=== PATIENT | female | born 2000 | race Caucasian/White ===

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

== ENCOUNTER 2019-10-15 10:35 | Emergency (ER) | payer OTHER ==
[2019-10-15 10:42] VITALS: RESP 18
[2019-10-15] MEDS ORDERED: SODIUM CHLORIDE 0.9% 500 ML 500 ML IV ONE (10:44)
[2019-10-15 11:16] LABS: Basophils % (A) 0 %; Eosinophils # (A) 0.1 k/uL (0-0.7); Eosinophils % (A) 1 %; HCT 40.6 % (34.0-46.0); HGB 13.8 gm/dL (11.4-16.0); Lymphocytes # (A) 1.1 k/uL (1.0-4.8); Lymphocytes % (A) 16 %; MCH 31.3 pg (25.0-35.0); MCHC 34.1 g/dL (31.0-37.0); Monocytes # (A) 0.3 k/uL (0-1.0); Monocytes % (A) 5 %; Neutrophils # (A) 5.6 k/uL (1.3-7.7); Neutrophils % (A) 78 %; Platelet Count 180 k/uL (150-450); RBC 4.41 m/uL (3.80-5.40); RDW 12.6 % (11.5-15.5); WBC 7.1 k/uL (4.0-11.0)
[2019-10-15] MEDS ORDERED: ONDANSETRON 4 MG/2 ML VIAL IVP STA (11:17)
[2019-10-15 11:25] LABS: Amorphous Sediment,Urine Rare /hpf; Appearance,Urine Cloudy (Clear); Bilirubin,Urine Negative (Negative); Blood,Urine Negative (Negative); Color,Urine Yellow; Glucose,Urine (UA) Negative (Negative); Ketones,Urine 4+ (Negative); Leukocyte Esterase,Urine Negative (Negative); Mucus,Urine Moderate /hpf; Nitrite,Urine Negative (Negative); PH, Urine 7.5 (5.0-8.0); Protein,Urine Trace (Negative); RBC,Urine 1 /hpf (0-5); Specific Gravity,Urine 1.023 (1.001-1.035); Squamous Epithelial Cell,Urine 2 /hpf (0-4); WBC,Urine 2 /hpf (0-5)
[2019-10-15 11:25] LABS: ALT 11 U/L (4-34); AST 21 U/L (14-36); African American GFR (CKD) >90 (>60 ml/min/1.73 sqM); Albumin 4.3 g/dL (3.5-5.0); Alkaline Phosphatase 56 U/L (38-126); Anion Gap 9 mmol/L; Blood Urea Nitrogen 4 mg/dL (7-17); Calcium 9.3 mg/dL (8.4-10.2); Carbon Dioxide 21 mmol/L (22-30); Chloride 106 mmol/L (98-107); Glucose 95 mg/dL (74-99); Non-African American GFR(CKD) >90 (>60 ml/min/1.73 sqM); Potassium 3.9 mmol/L (3.5-5.1); Sodium 136 mmol/L (137-145); Total Bilirubin 0.6 mg/dL (0.2-1.3); Total Protein 7.2 g/dL (6.3-8.2)
--- NOTE | 2019-10-15 11:30 | ED ---
Abdominal Pain HPI - General Chief Complaint: Abdominal Pain Stated Complaint: Abd pain/vomiting Time Seen by Provider: 10/15/19 10:44 Source: patient Mode of arrival: ambulatory Limitations: no limitations - History of Present Illness Initial Comments: 18-year-old female presenting today for chief complaint of lower abdominal pain and vomiting x 1 day. Patient states the past day she has had vomiting. She states she also has lower abdominal pressure. Patient states she is concerned of . Patient denies discharge or vaginal bleeding denies fevers but states she has had some loose stools. Denies blood in stools or vomit. Denies headache, neck stiffness. Patient denies specific right or left lower pain just states mostly midline/diffuse of lower abdomen. Denies radiation, Denies experiencing this before. Patient has no additional complaints. Upon arrival patient appears well no distress, but smells of vomit. - Related Data Home Medications Medication Instructions Recorded Confirmed Acetaminophen [Tylenol] 500 mg PO DAILY PRN 06/24/17 07/02/17 Allergies Allergy/AdvReac Type Severity Reaction Status Date / Time No Known Allergies Allergy Verified 10/15/19 10:43 Review of Systems ROS Statement: Those systems with pertinent positive or pertinent negative responses have been documented in the HPI. ROS Other: All systems not noted in ROS Statement are negative. Past Medical History Past Medical History: No Reported History Additional Past Medical History / Comment(s): DIGESTIVE PROBLEMS. History of Any Multi-Drug Resistant Organisms: None Reported Past Surgical History: No Surgical Hx Reported Additional Past Surgical History / Comment(s): FACIAL RECONSTRUCTION D/T DOG ATTACK. Past Anesthesia/Blood Transfusion Reactions: No Reported Reaction Past Psychological History: Depression Smoking Status: Current every day smoker Past Alcohol Use History: None Reported Past Drug Use History: Marijuana - Past Family History Mother Family Medical History: No Reported History Father Family Medical History: Unable to Obtain General Exam - General Exam Comments Initial Comments: General: The patient is awake and alert, in no distress Eye: Pupils are equal, round and reactive to light, extra-ocular movements are intact. No nystagmus. There is normal conjunctiva bilaterally. No signs of icterus. Cardiovascular: There is a regular rate and rhythm. No murmur, rub or gallop is appreciated. Respiratory: Lungs are clear to auscultation, respirations are non-labored, breath sounds are equal. No wheezes, stridor, rales, or rhonchi. Gastrointestinal: [Soft, non-distended, tender to palpable of lower pelvic region, mostly midline but is present on both sides equally. Remaining abdomen (upper) nontender and without masses or organomegaly noted. There is no rebound or guarding present. Musculoskeletal: Normal ROM, no tenderness. Strength 5/5. Sensation intact. Radial pulses equal bilaterally 2+. Neurological: A&O x 3. CN II-XII intact grossly, There are no obvious motor or sensory deficits. Coordination appears grossly intact. Speech is normal. Skin: Skin is warm and dry and no rashes or lesions are noted. Psychiatric: Cooperative, appropriate mood & affect, normal judgment. Limitations: no limitations Course Vital Signs 10/15/19 10/15/19 10:40 12:40 Temperature 98.3 F 98.0 F Pulse Rate 82 78 Respiratory 18 18 Rate Blood Pressure 107/71 100/61 O2 Sat by Pulse 96 98 Oximetry Medical Decision Making - Medical Decision Making 18yo lower pelvic pressure. HCG + urine, HCG quant ~54,000 correlates with US of 6 weeks 1 day. Patient denies vaginal bleeding or discharge, no noted bacteria in urine. Patient has no fevers. +4 ketones in urine suspected starvation> patient given zofran. tolerating oral intake. given IVF. Patient requesting discharge. Patient discharged with OBGYN f/u. recommended going over psychiatric medications today with her physician. Patient agreeable to care plan and discharge at this time-- as well as attending provider Dr. Phillips. - Lab Data Result diagrams: 10/15/19 11:03 10/15/19 11:03 Lab Results 10/15/19 10/15/19 10/15/19 Range/Units 11:00 11:00 11:03 WBC 7.1 (4.0-11.0) k/uL RBC 4.41 (3.80-5.40) m/uL Hgb 13.8 (11.4-16.0) gm/dL Hct 40.6 (34.0-46.0) % MCV 92.0 (80.0-100.0) fL MCH 31.3 (25.0-35.0) pg MCHC 34.1 (31.0-37.0) g/dL RDW 12.6 (11.5-15.5) % Plt Count 180 (150-450) k/uL Neutrophils % 78 % Lymphocytes % 16 % Monocytes % 5 % Eosinophils % 1 % Basophils % 0 % Neutrophils # 5.6 (1.3-7.7) k/uL Lymphocytes # 1.1 (1.0-4.8) k/uL Monocytes # 0.3 (0-1.0) k/uL Eosinophils # 0.1 (0-0.7) k/uL Basophils # 0.0 (0-0.2) k/uL Sodium (137-145) mmol/L Potassium (3.5-5.1) mmol/L Chloride (98-107) mmol/L Carbon Dioxide (22-30) mmol/L Anion Gap mmol/L BUN (7-17) mg/dL Creatinine (0.52-1.04) mg/dL Est GFR (CKD-EPI)AfAm (>60 ml/min/1.73 sqM) Est GFR (CKD-EPI)NonAf (>60 ml/min/1.73 sqM) Glucose (74-99) mg/dL Calcium (8.4-10.2) mg/dL Total Bilirubin (0.2-1.3) mg/dL AST (14-36) U/L ALT (4-34) U/L Alkaline Phosphatase (38-126) U/L Total Protein (6.3-8.2) g/dL Albumin (3.5-5.0) g/dL HCG, Quant mIU/mL Urine Color Yellow Urine Appearance Cloudy H (Clear) Urine pH 7.5 (5.0-8.0) Ur Specific [place] 1.023 (1.001-1.035) Urine Protein Trace H (Negative) Urine Glucose (UA) Negative (Negative) Urine Ketones 4+ H (Negative) Urine Blood Negative (Negative) Urine Nitrite Negative (Negative) Urine Bilirubin Negative (Negative) Urine Urobilinogen 2.0 (<2.0) mg/dL Ur Leukocyte Esterase Negative (Negative) Urine RBC 1 (0-5) /hpf Urine WBC 2 (0-5) /hpf Ur Squamous Epith Cells 2 (0-4) /hpf Amorphous Sediment Rare H (None) /hpf Urine Mucus Moderate H (None) /hpf Urine HCG, Qual Detected (Not Detectd) Blood Type Blood Type Recheck Bld Type Recheck Status 10/15/19 10/15/19 10/15/19 Range/Units 11:03 11:03 11:03 WBC (4.0-11.0) k/uL RBC (3.80-5.40) m/uL Hgb (11.4-16.0) gm/dL Hct (34.0-46.0) % MCV (80.0-100.0) fL MCH (25.0-35.0) pg MCHC (31.0-37.0) g/dL RDW (11.5-15.5) % Plt Count (150-450) k/uL Neutrophils % % Lymphocytes % % Monocytes % % Eosinophils % % Basophils % % Neutrophils # (1.3-7.7) k/uL Lymphocytes # (1.0-4.8) k/uL Monocytes # (0-1.0) k/uL Eosinophils # (0-0.7) k/uL Basophils # (0-0.2) k/uL Sodium 136 L (137-145) mmol/L Potassium 3.9 (3.5-5.1) mmol/L Chloride 106 (98-107) mmol/L Carbon Dioxide 21 L (22-30) mmol/L Anion Gap 9 mmol/L BUN 4 L (7-17) mg/dL Creatinine 0.52 (0.52-1.04) mg/dL Est GFR (CKD-EPI)AfAm >90 (>60 ml/min/1.73 sqM) Est GFR (CKD-EPI)NonAf >90 (>60 ml/min/1.73 sqM) Glucose 95 (74-99) mg/dL Calcium 9.3 (8.4-10.2) mg/dL Total Bilirubin 0.6 (0.2-1.3) mg/dL AST 21 (14-36) U/L ALT 11 (4-34) U/L Alkaline Phosphatase 56 (38-126) U/L Total Protein 7.2 (6.3-8.2) g/dL Albumin 4.3 (3.5-5.0) g/dL HCG, Quant 20876.2 mIU/mL Urine Color Urine Appearance (Clear) Urine pH (5.0-8.0) Ur Specific [place] (1.001-1.035) Urine Protein (Negative) Urine Glucose (UA) (Negative) Urine Ketones (Negative) Urine Blood (Negative) Urine Nitrite (Negative) Urine Bilirubin (Negative) Urine Urobilinogen (<2.0) mg/dL Ur Leukocyte Esterase (Negative) Urine RBC (0-5) /hpf Urine WBC (0-5) /hpf Ur Squamous Epith Cells (0-4) /hpf Amorphous Sediment (None) /hpf Urine Mucus (None) /hpf Urine HCG, Qual (Not Detectd) Blood Type O Positive Blood Type Recheck No Previous Record Bld Type Recheck Status [facility] ONLY Disposition Clinical Impression: Vomiting during , Dehydration, Lower abdominal pain, Intrauterine Disposition: HOME SELF-CARE Condition: Stable Instructions (If sedation given, give patient instructions): Abdominal Pain in (ED) Additional Instructions: Please use medication as discussed. Please follow-up with family doctor in the next 2 days, recommend finding OB care and following up in the next 1-2 days. Please consult psychiatry in regards to discontinuing medications that are unsafe in -call today. Please return to emergency room if the symptoms increase or worsen or for any other concerns. Is patient prescribed a controlled substance at d/c from ED?: No Referrals: Rigo Olivas MD [Primary Care Provider] - 1-2 days Houston Aleman MD [STAFF PHYSICIAN] - 1-2 days Linh Kirby DO [Doctor of Osteopathic Medicine] - 1-2 days Time of Disposition: 12:28
[2019-10-15] MEDS ORDERED: SODIUM CHLORIDE 0.9% 1,000 ML IV ONE (12:01)
--- NOTE | 2019-10-15 12:25 | US ---
EXAMINATION TYPE: Transabdominal DATE OF EXAM: 10/15/2019 12:11 PM COMPARISON: NONE CLINICAL HISTORY: and pain. Vomiting. EXAM PERFORMED: Transabdominal (TA) EXAM MEASUREMENTS: GESTATIONAL AGE / DATING Physician Established: Not yet established Dates by LMP: LMP unknown Dates by First Scan: No previous this is first scan Dates by Current Scan for: (6 weeks/1 days) EDC: 06/08/2020 MATERNAL ANATOMY Uterus: 8.9 x 5.6 x 6.9 cm Right Ovary: 2.6 x 2.4 x 2.3 cm Left Ovary: Obscured by bowel gas. Post CDS / Adnexa: wnl Presence of free fluid: no Presence of corpus luteal cyst: no Presence of subchorionic bleed: no GESTATION / SURVEY CRL: 0.49 cm (6 weeks/1 days) Yolk Sac (normal less than 6mm): 2 mm Heart Rate: 154 bpm Rhythm: Normal IUP: Viable IUP Beta HcG (if available): Not available at this time Single live intrauterine gestation is confirmed as gestational sac, yolk sac, and pole are seen . No free fluid in pelvic cul-de-sac. Right ovary seen. Left ovary not identified. No suspicious extraovarian adnexal mass seen. IMPRESSION: Single live intrauterine gestation is confirmed. Mean crown-rump length 0.5 cm correspond ing to 6 week 1 day old fetus.
[2019-10-15 12:41] VITALS: BP 100/61; PULSE 78; TEMP 98
== END 2019-10-15 12:40 | disposition home or self-care (01) ==
LOC: EC 10:35
DX: O21.9 Vomiting of pregnancy, unspecified (principal); O26.891 Other specified pregnancy related conditions, first trimester; R10.30 Lower abdominal pain, unspecified; O99.281 Endocrine, nutritional and metabolic diseases complicating pregnancy, first trimester; E86.0 Dehydration; O99.331 Smoking (tobacco) complicating pregnancy, first trimester; F17.200 Nicotine dependence, unspecified, uncomplicated; Z3A.01 Less than 8 weeks gestation of pregnancy
CPT/HCPCS: 36415; 86900; 86901; 80053; 85025; 81001; 81025; 84702; 76801; 99284; 96374; J2405

== ENCOUNTER 2019-11-27 15:30 | Emergency (ER) | payer OTHER ==
[2019-11-27 15:46] VITALS: RESP 18; TEMP 98.7
--- NOTE | 2019-11-27 16:26 | ED ---
General Adult HPI - General Chief complaint: Psychiatric Symptoms Stated complaint: Petition Time Seen by Provider: 11/27/19 15:48 Source: patient, RN notes reviewed Mode of arrival: ambulatory Limitations: no limitations - History of Present Illness Initial comments: 19-year-old female with a past medical history of depression presents to the emergency department for EPS evaluation. Patient states she was petitioned by her mother for "threatening her." Patient states a little over a month ago her mother left her dad and went to [place] where she met her new boyfriend and brought her back to their house. She kicked her father out apparently. Patient states this made her very upset. States she then found out just before her 19st birthday that she was and decided to have an . Patient reports that she told her mother 2 weeks ago that she was leaning on her for help in that her mother was letting her down. She states that yesterday she became very upset about this and texted her mother "RIP to the mother I used to know." States she is not threatening her when she said this that was stating that their relationship is over. Apparently mother went to court and got a petition for patient to be evaluated for threatening her. Patient denies any thoughts of harming herself or anyone else. Denies suicidal thoughts. Patient has no other complaints at this time including shortness of breath, chest pain, abdominal pain, nausea or vomiting, headache, or visual changes. - Related Data Home Medications Medication Instructions Recorded Confirmed Acetaminophen [Tylenol] 500 mg PO DAILY PRN 06/24/17 07/02/17 Allergies Allergy/AdvReac Type Severity Reaction Status Date / Time No Known Allergies Allergy Verified 11/27/19 15:46 Review of Systems ROS Statement: Those systems with pertinent positive or pertinent negative responses have been documented in the HPI. ROS Other: All systems not noted in ROS Statement are negative. Past Medical History Past Medical History: No Reported History Additional Past Medical History / Comment(s): DIGESTIVE PROBLEMS. History of Any Multi-Drug Resistant Organisms: None Reported Past Surgical History: No Surgical Hx Reported Additional Past Surgical History / Comment(s): FACIAL RECONSTRUCTION D/T DOG ATTACK. Past Anesthesia/Blood Transfusion Reactions: No Reported Reaction Past Psychological History: Depression Smoking Status: Current every day smoker Past Alcohol Use History: None Reported Past Drug Use History: Marijuana - Past Family History Mother Family Medical History: No Reported History Father Family Medical History: Unable to Obtain General Exam Limitations: no limitations General appearance: alert, in no apparent distress Head exam: Present: atraumatic, normocephalic, normal inspection Eye exam: Present: normal appearance, PERRL, EOMI. Absent: scleral icterus, conjunctival injection, periorbital swelling ENT exam: Present: normal exam, mucous membranes moist Neck exam: Present: normal inspection, full ROM. Absent: tenderness, meningismus, lymphadenopathy Respiratory exam: Present: normal lung sounds bilaterally. Absent: respiratory distress, wheezes, rales, rhonchi, stridor Cardiovascular Exam: Present: regular rate, normal rhythm, normal heart sounds. Absent: systolic murmur, diastolic murmur, rubs, gallop, clicks GI/Abdominal exam: Present: soft, normal bowel sounds. Absent: distended, tenderness, guarding, rebound, rigid Neurological exam: Present: alert Psychiatric exam: Absent: homicidal ideation, suicidal ideation Course Vital Signs 11/27/19 15:41 Temperature 98.7 F Pulse Rate 83 Respiratory 18 Rate Blood Pressure 90/53 O2 Sat by Pulse 99 Oximetry Medical Decision Making - Medical Decision Making Patient adamantly denies any suicidal or homicidal thoughts. Patient was evaluated by EPS and psychiatrist is recommending discharge home with follow-up. Patient will return here for any worsening symptoms. She is agreeable to this. Significant other will pick her up. - Lab Data Lab Results 11/27/19 Range/Units 16:23 Urine Opiates Screen Not Detected (NotDetected) Ur Oxycodone Screen Not Detected (NotDetected) Urine Methadone Screen Not Detected (NotDetected) Ur Propoxyphene Screen Not Detected (NotDetected) Ur Barbiturates Screen Not Detected (NotDetected) U Tricyclic Antidepress Not Detected (NotDetected) Ur Phencyclidine Scrn Not Detected (NotDetected) Ur Amphetamines Screen Not Detected (NotDetected) U Methamphetamines Scrn Not Detected (NotDetected) U Benzodiazepines Scrn Not Detected (NotDetected) Urine Cocaine Screen Not Detected (NotDetected) U Marijuana (THC) Screen Detected H (NotDetected) Disposition Clinical Impression: Adjustment reaction Disposition: HOME SELF-CARE Condition: Good Instructions (If sedation given, give patient instructions): Depression (ED) Additional Instructions: Please follow up with referrals given. Please return here for any worsening symptoms. Is patient prescribed a controlled substance at d/c from ED?: No Referrals: Rigo Olivas MD [Primary Care Provider] - 1-2 days Time of Disposition: 18:47
[2019-11-27 16:58] LABS: Amphetamine Screen,Urine Not Detected (NotDetected); Barbiturate Screen,Urine Not Detected (NotDetected); Benzodiazepines Screen,Urine Not Detected (NotDetected); Cocaine Screen,Urine Not Detected (NotDetected); Methadone Screen, Urine Not Detected (NotDetected); Opiate Screen,Urine Not Detected (NotDetected); Oxycodone Screen, Urine Not Detected (NotDetected); Phencyclidine Screen,Urine Not Detected (NotDetected); Tricyclic Antidepressant,Urine Not Detected (NotDetected); Urn Cannabinoid Scrn Detected (NotDetected)
[2019-11-27 21:37] VITALS: BP 110/55; PULSE 88
== END 2019-11-27 19:07 | disposition home or self-care (01) ==
LOC: EC 15:30
DX: F43.20 Adjustment disorder, unspecified (principal); F17.200 Nicotine dependence, unspecified, uncomplicated
CPT/HCPCS: 80306; 82075; 99284

== ENCOUNTER 2020-04-23 20:08 | Emergency (ER) | payer OTHER ==
[2020-04-23] MEDS ORDERED: SODIUM CHLORIDE 0.9% 2,000 ML IV STA (20:26)
[2020-04-23] MEDS ORDERED: diphenhydrAMINE 50 MG/ML 1 ML VIAL IVP STA (20:26)
[2020-04-23] MEDS ORDERED: SODIUM CHLORIDE 0.9% 1,000 ML IV STA (20:26)
[2020-04-23] MEDS ORDERED: METOCLOPRAMIDE 5 MG/ML 2 ML VIAL IVP STA (20:26)
--- NOTE | 2020-04-23 20:30 | ED ---
General Adult HPI - General Chief complaint: Nausea/Vomiting/Diarrhea Stated complaint: Nausea/Vomiting Time Seen by Provider: 04/23/20 20:15 Source: patient, RN notes reviewed, old records reviewed Limitations: no limitations - History of Present Illness Initial comments: This Patient is a 19-year-old female presents emergency Department stay of complains of nausea and lower abdominal pain today. She's had multiple episodes of vomiting. She states that she could possibly be as her last menstrual period was a month and a half ago. She's not taken test at home. Patient states last time she was she had symptoms such as this with nausea and vomiting. She also reports that she is to start new antibiotic for a dental infection today. Has lower abdominal cramping. Denies leg diarrhea or dysuria. Denies vaginal discharge or bleeding. - Related Data Home Medications Medication Instructions Recorded Confirmed Citalopram Hydrobromide [CeleXA] 20 mg PO HS 04/23/20 04/23/20 QUEtiapine [SEROquel] 50 mg PO HS 04/23/20 04/23/20 Previous Rx's Medication Instructions Recorded Amoxicillin 500 mg PO TID #30 capsule 04/23/20 Metoclopramide [Reglan] 5 mg PO ACHS #12 tab 04/23/20 Allergies Allergy/AdvReac Type Severity Reaction Status Date / Time No Known Allergies Allergy Verified 04/23/20 21:26 Review of Systems ROS Statement: Those systems with pertinent positive or pertinent negative responses have been documented in the HPI. ROS Other: All systems not noted in ROS Statement are negative. Past Medical History Past Medical History: No Reported History Additional Past Medical History / Comment(s): DIGESTIVE PROBLEMS. History of Any Multi-Drug Resistant Organisms: None Reported Past Surgical History: No Surgical Hx Reported Additional Past Surgical History / Comment(s): FACIAL RECONSTRUCTION D/T DOG ATTACK. Past Anesthesia/Blood Transfusion Reactions: No Reported Reaction Past Psychological History: Depression Past Alcohol Use History: None Reported Past Drug Use History: Marijuana - Past Family History Mother Family Medical History: No Reported History Father Family Medical History: Unable to Obtain General Exam - General Exam Comments Initial Comments: Alert and oriented 19-year-old female. No distress. Limitations: no limitations General appearance: alert, in no apparent distress Head exam: Present: atraumatic, normocephalic, normal inspection Eye exam: Present: normal appearance, PERRL, EOMI. Absent: scleral icterus, conjunctival injection, periorbital swelling ENT exam: Present: normal exam, mucous membranes moist, other (Patient is poor dentition. Multiple dental caries and broken teeth.) Neck exam: Present: normal inspection. Absent: tenderness, meningismus, lymphadenopathy Respiratory exam: Present: normal lung sounds bilaterally. Absent: respiratory distress, wheezes, rales, rhonchi, stridor Cardiovascular Exam: Present: regular rate, normal rhythm, normal heart sounds. Absent: systolic murmur, diastolic murmur, rubs, gallop, clicks GI/Abdominal exam: Present: soft, normal bowel sounds. Absent: distended, tenderness, guarding, rebound, rigid Extremities exam: Present: normal inspection, full ROM, normal capillary refill. Absent: tenderness, pedal edema, joint swelling, calf tenderness Back exam: Present: normal inspection Neurological exam: Present: alert, oriented X3, CN II-XII intact Psychiatric exam: Present: normal affect, normal mood Skin exam: Present: warm, dry, intact, normal color. Absent: rash Course Vital Signs 04/23/20 04/23/20 20:09 22:50 Temperature 98.9 F 98.4 F Pulse Rate 111 H 92 Respiratory 18 15 Rate Blood Pressure 101/71 84/42 O2 Sat by Pulse 97 100 Oximetry Medical Decision Making - Medical Decision Making 19-year-old female presents to the ER today for evaluation with complaints of nausea and vomiting. Concern for . She doesn't has a test serum hCG is 30,000. She is Rh+. This we patient's second . Patient has no vaginal bleeding or discharge. Labwork was reviewed and otherwise unremarkable. Ultrasound today shows gestational sac with no heart rate. Possible demise. Patient was informed these results. Discussed she may start having vaginal bleeding concerning concern for miscarriage. I discussed she needs follow-up with an [facility] CONSULTANT. Patient will be started on antibiotic for her known dental infection. - Lab Data Result diagrams: 04/23/20 20:35 04/23/20 20:35 Lab Results 04/23/20 04/23/20 04/23/20 Range/Units 20:35 20:35 20:35 WBC 6.7 (3.8-10.6) k/uL RBC 4.23 (3.80-5.40) m/uL Hgb 13.0 (11.4-16.0) gm/dL Hct 37.8 (34.0-46.0) % MCV 89.3 (80.0-100.0) fL MCH 30.7 (25.0-35.0) pg MCHC 34.4 (31.0-37.0) g/dL RDW 13.6 (11.5-15.5) % Plt Count 169 (150-450) k/uL MPV 7.4 Neutrophils % 67 % Lymphocytes % 23 % Monocytes % 6 % Eosinophils % 1 % Basophils % 0 % Neutrophils # 4.5 (1.3-7.7) k/uL Lymphocytes # 1.6 (1.0-4.8) k/uL Monocytes # 0.4 (0-1.0) k/uL Eosinophils # 0.0 (0-0.7) k/uL Basophils # 0.0 (0-0.2) k/uL Sodium 135 L (137-145) mmol/L Potassium 3.5 (3.5-5.1) mmol/L Chloride 106 (98-107) mmol/L Carbon Dioxide 23 (22-30) mmol/L Anion Gap 6 mmol/L BUN 6 L (7-17) mg/dL Creatinine 0.60 (0.52-1.04) mg/dL Est GFR (CKD-EPI)AfAm >90 (>60 ml/min/1.73 sqM) Est GFR (CKD-EPI)NonAf >90 (>60 ml/min/1.73 sqM) Glucose 90 (74-99) mg/dL Calcium 9.1 (8.4-10.2) mg/dL Total Bilirubin 1.0 (0.2-1.3) mg/dL AST 19 (14-36) U/L ALT 11 (4-34) U/L Alkaline Phosphatase 49 (38-126) U/L Total Protein 6.9 (6.3-8.2) g/dL Albumin 4.1 (3.5-5.0) g/dL Lipase 60 (23-300) U/L HCG, Quant 29020.3 mIU/mL Urine Color Yellow Urine Appearance Cloudy H (Clear) Urine pH 7.0 (5.0-8.0) Ur Specific [place] 1.028 (1.001-1.035) Urine Protein 1+ H (Negative) Urine Glucose (UA) Negative (Negative) Urine Ketones 3+ H (Negative) Urine Blood Negative (Negative) Urine Nitrite Negative (Negative) Urine Bilirubin Negative (Negative) Urine Urobilinogen <2.0 (<2.0) mg/dL Ur Leukocyte Esterase Negative (Negative) Urine RBC 2 (0-5) /hpf Urine WBC 3 (0-5) /hpf Ur Squamous Epith Cells 10 H (0-4) /hpf Amorphous Sediment Occasional H (None) /hpf Hyaline Casts 1 (0-2) /lpf Urine Mucus Many H (None) /hpf Urine HCG, Qual (Not Detectd) Blood Type Blood Type Recheck Bld Type Recheck Status 04/23/20 04/23/20 Range/Units 20:35 20:40 WBC (3.8-10.6) k/uL RBC (3.80-5.40) m/uL Hgb (11.4-16.0) gm/dL Hct (34.0-46.0) % MCV (80.0-100.0) fL MCH (25.0-35.0) pg MCHC (31.0-37.0) g/dL RDW (11.5-15.5) % Plt Count (150-450) k/uL MPV Neutrophils % % Lymphocytes % % Monocytes % % Eosinophils % % Basophils % % Neutrophils # (1.3-7.7) k/uL Lymphocytes # (1.0-4.8) k/uL Monocytes # (0-1.0) k/uL Eosinophils # (0-0.7) k/uL Basophils # (0-0.2) k/uL Sodium (137-145) mmol/L Potassium (3.5-5.1) mmol/L Chloride (98-107) mmol/L Carbon Dioxide (22-30) mmol/L Anion Gap mmol/L BUN (7-17) mg/dL Creatinine (0.52-1.04) mg/dL Est GFR (CKD-EPI)AfAm (>60 ml/min/1.73 sqM) Est GFR (CKD-EPI)NonAf (>60 ml/min/1.73 sqM) Glucose (74-99) mg/dL Calcium (8.4-10.2) mg/dL Total Bilirubin (0.2-1.3) mg/dL AST (14-36) U/L ALT (4-34) U/L Alkaline Phosphatase (38-126) U/L Total Protein (6.3-8.2) g/dL Albumin (3.5-5.0) g/dL Lipase (23-300) U/L HCG, Quant mIU/mL Urine Color Urine Appearance (Clear) Urine pH (5.0-8.0) Ur Specific [place] (1.001-1.035) Urine Protein (Negative) Urine Glucose (UA) (Negative) Urine Ketones (Negative) Urine Blood (Negative) Urine Nitrite (Negative) Urine Bilirubin (Negative) Urine Urobilinogen (<2.0) mg/dL Ur Leukocyte Esterase (Negative) Urine RBC (0-5) /hpf Urine WBC (0-5) /hpf Ur Squamous Epith Cells (0-4) /hpf Amorphous Sediment (None) /hpf Hyaline Casts (0-2) /lpf Urine Mucus (None) /hpf Urine HCG, Qual Detected (Not Detectd) Blood Type O Positive Blood Type Recheck O Pos Bld Type Recheck Status No - Radiology Data Radiology results: report reviewed Demonstration of a single and she is gestation without evidence of pole. They relate her early gestation however demise cannot be excluded. Recommend serially she did follow-up imaging if indicated. Disposition Clinical Impression: Early stage of , Nausea & vomiting, Dental infection Disposition: HOME SELF-CARE Condition: Good Instructions (If sedation given, give patient instructions): Nausea and Vomiting in (ED) Additional Instructions: Patient advised to follow-up with an [facility] CONSULTANT for repeat ultrasound and blood work within the next 1-2 weeks. Patient to return if there is any worsening signs or symptoms or abnormal vaginal bleeding. Patient can take the antibiotic as prescribed and use nausea medicine as discussed. Prescriptions: Amoxicillin 500 mg PO TID #30 capsule Metoclopramide [Reglan] 5 mg PO ACHS #12 tab Is patient prescribed a controlled substance at d/c from ED?: No Referrals: Rigo Olivas MD [Primary Care Provider] - 1-2 days Time of Disposition: 22:36
[2020-04-23 20:53] LABS: Basophils % (A) 0 %; Eosinophils % (A) 1 %; HCT 37.8 % (34.0-46.0); Lymphocytes # (A) 1.6 k/uL (1.0-4.8); Lymphocytes % (A) 23 %; MCH 30.7 pg (25.0-35.0); MCHC 34.4 g/dL (31.0-37.0); MCV 89.3 fL (80.0-100.0); Mean Platelet Volume 7.4; Monocytes # (A) 0.4 k/uL (0-1.0); Monocytes % (A) 6 %; Neutrophils # (A) 4.5 k/uL (1.3-7.7); Neutrophils % (A) 67 %; Platelet Count 169 k/uL (150-450); RBC 4.23 m/uL (3.80-5.40); RDW 13.6 % (11.5-15.5); WBC 6.7 k/uL (3.8-10.6)
[2020-04-23 20:58] LABS: Amorphous Sediment,Urine Occasional /hpf; Appearance,Urine Cloudy (Clear); Bilirubin,Urine Negative (Negative); Blood,Urine Negative (Negative); Color,Urine Yellow; Glucose,Urine (UA) Negative (Negative); Hyaline Casts,Urine 1 /lpf (0-2); Ketones,Urine 3+ (Negative); Leukocyte Esterase,Urine Negative (Negative); Mucus,Urine Many /hpf; Nitrite,Urine Negative (Negative); Protein,Urine 1+ (Negative); RBC,Urine 2 /hpf (0-5); Specific Gravity,Urine 1.028 (1.001-1.035); Squamous Epithelial Cell,Urine 10 /hpf (0-4); Urobilinogen,Urine <2.0 mg/dL (<2.0); WBC,Urine 3 /hpf (0-5)
[2020-04-23 21:02] LABS: ALT 11 U/L (4-34); AST 19 U/L (14-36); African American GFR (CKD) >90 (>60 ml/min/1.73 sqM); Albumin 4.1 g/dL (3.5-5.0); Alkaline Phosphatase 49 U/L (38-126); Anion Gap 6 mmol/L; Blood Urea Nitrogen 6 mg/dL (7-17); Calcium 9.1 mg/dL (8.4-10.2); Carbon Dioxide 23 mmol/L (22-30); Chloride 106 mmol/L (98-107); Glucose 90 mg/dL (74-99); Lipase 60 U/L (23-300); Non-African American GFR(CKD) >90 (>60 ml/min/1.73 sqM); Potassium 3.5 mmol/L (3.5-5.1); Sodium 135 mmol/L (137-145); Total Protein 6.9 g/dL (6.3-8.2)
[2020-04-23 21:55] LABS: HCG,Quantitative Serum 31153.3 mIU/mL
--- NOTE | 2020-04-23 22:00 | US ---
EXAMINATION TYPE: Transabdominal DATE OF EXAM: 04/23/2020 9:39 PM COMPARISON: NONE CLINICAL HISTORY: pain, new . cramping, A1 EXAM PERFORMED: obta EXAM MEASUREMENTS: GESTATIONAL AGE / DATING Physician Established: Not yet established Dates by LMP: LMP unknown Dates by First Scan: No previous this is first scan Dates by Current Scan for: (6 weeks/2 days) EDC: 12/15/2020 MATERNAL ANATOMY Uterus: 7.6 x 5.7 x 4.5cm Right Ovary: 2.1 x 1.6 x 1.8cm Left Ovary: not seen due to bowel gas Post CDS / Adnexa: wnl Presence of free fluid: no Presence of corpus luteal cyst: not seen Presence of subchorionic bleed: no GESTATION / SURVEY CRL: not seen today MSD: 1.5cm (6 weeks/2 days, slightly irregular borders to sac, nonspecific. Yolk Sac (normal less than 6mm): 0.2cm Date of LMP: unknown Beta HcG (if available): pending IMPRESSION: Demonstration of a single intrauterine gestation without evidence of pole. Finding may relate t o early gestation. However demise cannot be excluded. Recommend serial beta-hCG and follow-up i maging if indicated.
[2020-04-23 23:05] VITALS: BP 84/42; PULSE 92; RESP 15; TEMP 98.4
== END 2020-04-23 22:50 | disposition home or self-care (01) ==
LOC: EC 20:08
DX: O21.0 Mild hyperemesis gravidarum (principal); O99.619 Diseases of the digestive system complicating pregnancy, unspecified trimester; K04.7 Periapical abscess without sinus; O99.340 Other mental disorders complicating pregnancy, unspecified trimester; F32.9 Major depressive disorder, single episode, unspecified; Z79.899 Other long term (current) drug therapy; Z3A.00 Weeks of gestation of pregnancy not specified
CPT/HCPCS: 36415; 86900; 86901; 80053; 83690; 85025; 81001; 81025; 84702; 76801; 99284; 96374; 96375; 96361 ×2; J1200; J2765

== ENCOUNTER 2020-04-25 12:15 | Emergency (ER) | payer OTHER ==
[2020-04-25 12:29] VITALS: RESP 16; TEMP 98.4
[2020-04-25] MEDS ORDERED: PYRIDOXINE 100 MG/ML 1 ML VIAL IVP STA (12:36)
[2020-04-25] MEDS ORDERED: SODIUM CHLORIDE 0.9% 500 ML 500 ML IV ONE (12:36)
[2020-04-25] MEDS ORDERED: ONDANSETRON 4 MG/2 ML VIAL IVP STA ×2 (12:36→15:02)
[2020-04-25] MEDS ORDERED: SODIUM CHLORIDE 0.9% 1,000 ML IV ONE ×2 (12:36→15:06)
--- NOTE | 2020-04-25 12:39 | ED ---
Nausea/Vomiting/Diarrhea HPI - General Chief complaint: Nausea/Vomiting/Diarrhea Stated complaint: 6 wks preg - NVD Time Seen by Provider: 04/25/20 12:32 Source: patient Mode of arrival: wheelchair Limitations: no limitations - History of Present Illness Initial comments: 19-year-old female A1 with last menstrual period at the beginning of March complete she is currently around 6 weeks stating she has 4 days of nausea vomiting. Pt states that her LUQ hurts. Patient denies any fevers cough upper respiratory symptoms. She denies vaginal bleeding. Pt denied lower abdominal pain. Patient states she is concerned as her hCG was elevated but there was no pole on ultrasound. Patient states she was discharged with Reglan which does not seem to be helping. Patient states she continues to dry heave and thrw up bile. Patient denies additional complaints upon arrival patient appears nontoxic. States she is in the process of setting up outpatient OBGYN follow-up. - Related Data Home Medications Medication Instructions Recorded Confirmed Citalopram Hydrobromide [CeleXA] 20 mg PO HS 04/23/20 04/25/20 QUEtiapine [SEROquel] 50 mg PO HS 04/23/20 04/25/20 Previous Rx's Medication Instructions Recorded Amoxicillin 500 mg PO TID #30 capsule 04/23/20 Metoclopramide [Reglan] 5 mg PO ACHS #12 tab 04/23/20 Allergies Allergy/AdvReac Type Severity Reaction Status Date / Time No Known Allergies Allergy Verified 04/25/20 13:27 Review of Systems ROS Statement: Those systems with pertinent positive or pertinent negative responses have been documented in the HPI. ROS Other: All systems not noted in ROS Statement are negative. Past Medical History Past Medical History: No Reported History Additional Past Medical History / Comment(s): DIGESTIVE PROBLEMS. History of Any Multi-Drug Resistant Organisms: None Reported Past Surgical History: No Surgical Hx Reported Additional Past Surgical History / Comment(s): FACIAL RECONSTRUCTION D/T DOG ATTACK. Past Anesthesia/Blood Transfusion Reactions: No Reported Reaction Past Psychological History: Depression Smoking Status: Current every day smoker Past Alcohol Use History: None Reported Past Drug Use History: Marijuana - Past Family History Mother Family Medical History: No Reported History Father Family Medical History: Unable to Obtain General Exam - General Exam Comments Initial Comments: General: The patient is awake and alert, in no distress, and does not appear acutely ill. Eye: Pupils are equal, round and reactive to light, extra-ocular movements are intact. No nystagmus. There is normal conjunctiva bilaterally. No signs of icterus. Cardiovascular: There is a regular rate and rhythm. No murmur, rub or gallop is appreciated. Respiratory: Lungs are clear to auscultation, respirations are non-labored, breath sounds are equal. No wheezes, stridor, rales, or rhonchi. Gastrointestinal: Soft, non-distended, LUQ tenderness to palpation of the abdomen, abdomen without masses or organomegaly noted. There is no rebound or guarding present. Musculoskeletal: Normal ROM, no tenderness. Strength 5/5. Sensation intact. Pulses equal bilaterally 2+. Neurological: A&O x 3. CN II-XII intact grossly, There are no obvious motor or sensory deficits. Coordination appears grossly intact. Speech is normal. Skin: Skin is warm and dry and no rashes or lesions are noted. Psychiatric: Cooperative, appropriate mood & affect, normal judgment. Limitations: no limitations Course Vital Signs 04/25/20 12:25 Temperature 98.4 F Pulse Rate 74 Respiratory 16 Rate Blood Pressure 102/67 O2 Sat by Pulse 100 Oximetry Medical Decision Making - Medical Decision Making Labs stable. Ketones in urine, given significant amount of fluid. pt vomiting controlled. pt given option of admission for observation vs attempting home with zofran starter pack. pt preferred to go home. pt on nursing GI exam stating lower pain, pt questioned on this she only endorsed LUQ pain, states it feels like her "stomach". Pt denies vaginal bleeding. HCG trending upwards. IUP last US. denies additional complaints. Case discussed with Dr. Phillips who is agreeable to care plan and discharge at this time. - Lab Data Result diagrams: 04/25/20 12:53 04/25/20 12:53 Lab Results 04/25/20 04/25/20 04/25/20 Range/Units 12:53 12:53 12:53 WBC 7.5 (3.8-10.6) k/uL RBC 4.61 (3.80-5.40) m/uL Hgb 14.1 (11.4-16.0) gm/dL Hct 41.2 (34.0-46.0) % MCV 89.3 (80.0-100.0) fL MCH 30.6 (25.0-35.0) pg MCHC 34.3 (31.0-37.0) g/dL RDW 13.4 (11.5-15.5) % Plt Count 179 (150-450) k/uL MPV 7.7 Neutrophils % 82 % Lymphocytes % 12 % Monocytes % 5 % Eosinophils % 0 % Basophils % 0 % Neutrophils # 6.2 (1.3-7.7) k/uL Lymphocytes # 0.9 L (1.0-4.8) k/uL Monocytes # 0.4 (0-1.0) k/uL Eosinophils # 0.0 (0-0.7) k/uL Basophils # 0.0 (0-0.2) k/uL Sodium 136 L (137-145) mmol/L Potassium 4.0 (3.5-5.1) mmol/L Chloride 107 (98-107) mmol/L Carbon Dioxide 20 L (22-30) mmol/L Anion Gap 9 mmol/L BUN 6 L (7-17) mg/dL Creatinine 0.59 (0.52-1.04) mg/dL Est GFR (CKD-EPI)AfAm >90 (>60 ml/min/1.73 sqM) Est GFR (CKD-EPI)NonAf >90 (>60 ml/min/1.73 sqM) Glucose 91 (74-99) mg/dL Calcium 9.3 (8.4-10.2) mg/dL Total Bilirubin 1.4 H (0.2-1.3) mg/dL AST 26 (14-36) U/L ALT 12 (4-34) U/L Alkaline Phosphatase 47 (38-126) U/L Total Protein 7.6 (6.3-8.2) g/dL Albumin 4.6 (3.5-5.0) g/dL HCG, Quant 63768.1 mIU/mL Urine Color Yellow Urine Appearance Cloudy H (Clear) Urine pH 6.5 (5.0-8.0) Ur Specific [place] 1.029 (1.001-1.035) Urine Protein 1+ H (Negative) Urine Glucose (UA) Negative (Negative) Urine Ketones 4+ H (Negative) Urine Blood Negative (Negative) Urine Nitrite Negative (Negative) Urine Bilirubin Negative (Negative) Urine Urobilinogen 3.0 (<2.0) mg/dL Ur Leukocyte Esterase Negative (Negative) Urine RBC <1 (0-5) /hpf Urine WBC 2 (0-5) /hpf Ur Squamous Epith Cells 17 H (0-4) /hpf Urine Bacteria Rare H (None) /hpf Urine Mucus Many H (None) /hpf Disposition Clinical Impression: Vomiting during Disposition: HOME SELF-CARE Condition: Good Instructions (If sedation given, give patient instructions): Hyperemesis Gravidarum (ED) Additional Instructions: Please use medication as discussed. Please follow-up with OBGYN in the next week, return for persistent vomiting, abdominal pain, vaginal bleeding, fevers. Please return to emergency room if the symptoms increase or worsen or for any other concerns. Is patient prescribed a controlled substance at d/c from ED?: No Referrals: Rigo Olivas MD [Primary Care Provider] - 1-2 days Argelia Downey MD [STAFF PHYSICIAN] - 1-2 days Time of Disposition: 17:09
[2020-04-25] MEDS ORDERED: SODIUM CHLORIDE 0.9% 1,000 ML IV SCH (12:45)
[2020-04-25 13:28] LABS: Basophils % (A) 0 %; Eosinophils % (A) 0 %; HCT 41.2 % (34.0-46.0); HGB 14.1 gm/dL (11.4-16.0); Lymphocytes # (A) 0.9 k/uL (1.0-4.8); Lymphocytes % (A) 12 %; MCH 30.6 pg (25.0-35.0); MCHC 34.3 g/dL (31.0-37.0); MCV 89.3 fL (80.0-100.0); Mean Platelet Volume 7.7; Monocytes # (A) 0.4 k/uL (0-1.0); Monocytes % (A) 5 %; Neutrophils # (A) 6.2 k/uL (1.3-7.7); Neutrophils % (A) 82 %; Platelet Count 179 k/uL (150-450); RBC 4.61 m/uL (3.80-5.40); RDW 13.4 % (11.5-15.5); WBC 7.5 k/uL (3.8-10.6)
[2020-04-25 13:40] LABS: ALT 12 U/L (4-34); African American GFR (CKD) >90 (>60 ml/min/1.73 sqM); Albumin 4.6 g/dL (3.5-5.0); Alkaline Phosphatase 47 U/L (38-126); Anion Gap 9 mmol/L; Blood Urea Nitrogen 6 mg/dL (7-17); Calcium 9.3 mg/dL (8.4-10.2); Carbon Dioxide 20 mmol/L (22-30); Chloride 107 mmol/L (98-107); Glucose 91 mg/dL (74-99); Non-African American GFR(CKD) >90 (>60 ml/min/1.73 sqM); Sodium 136 mmol/L (137-145); Total Bilirubin 1.4 mg/dL (0.2-1.3); Total Protein 7.6 g/dL (6.3-8.2)
[2020-04-25 13:42] LABS: AST 26 U/L (14-36)
[2020-04-25 14:11] LABS: Appearance,Urine Cloudy (Clear); Bacteria,Urine Rare /hpf; Bilirubin,Urine Negative (Negative); Blood,Urine Negative (Negative); Color,Urine Yellow; Glucose,Urine (UA) Negative (Negative); Ketones,Urine 4+ (Negative); Leukocyte Esterase,Urine Negative (Negative); Mucus,Urine Many /hpf; Nitrite,Urine Negative (Negative); PH, Urine 6.5 (5.0-8.0); Protein,Urine 1+ (Negative); RBC,Urine <1 /hpf (0-5); Specific Gravity,Urine 1.029 (1.001-1.035); Squamous Epithelial Cell,Urine 17 /hpf (0-4); WBC,Urine 2 /hpf (0-5)
[2020-04-25 14:40] LABS: HCG,Quantitative Serum 46760.1 mIU/mL
[2020-04-25] MEDS ORDERED: METOCLOPRAMIDE 5 MG/ML 2 ML VIAL IVP STA (15:52)
[2020-04-25] MEDS ORDERED: FAMOTIDINE 20 MG/2 ML VIAL IV STA (15:52)
[2020-04-25] MEDS ORDERED: ONDANSETRON ODT 4 MG TAB PO STA (17:07)
[2020-04-25 18:07] VITALS: BP 117/67; PULSE 80
== END 2020-04-25 18:08 | disposition home or self-care (01) ==
LOC: EC 12:15
DX: O21.9 Vomiting of pregnancy, unspecified (principal); R82.4 Acetonuria; R10.12 Left upper quadrant pain; O99.891 Other specified diseases and conditions complicating pregnancy; O99.331 Smoking (tobacco) complicating pregnancy, first trimester; O99.341 Other mental disorders complicating pregnancy, first trimester; F17.200 Nicotine dependence, unspecified, uncomplicated; Z79.899 Other long term (current) drug therapy; Z87.19 Personal history of other diseases of the digestive system; Z3A.01 Less than 8 weeks gestation of pregnancy
CPT/HCPCS: 36415; 80053; 85025; 81001; 84702; 99284; 96374; 96375 ×4; 96361 ×5; J3415; J2765; J2405

== ENCOUNTER 2023-06-09 16:05 | Emergency (ER) | payer OTHER ==
[2023-06-09 16:46] VITALS: BP 96/48; PULSE 90; RESP 15; TEMP 98.2
--- NOTE | 2023-06-09 16:56 | ED ---
Nausea/Vomiting/Diarrhea HPI - General Source: patient, RN notes reviewed Mode of arrival: ambulatory Limitations: no limitations - History of Present Illness MD complaint: nausea, vomiting <Bisi Rodriguez - Last Filed: 06/09/23 16:54> <Danni Huerta - Last Filed: 06/10/23 19:31> - General Chief complaint: Nausea/Vomiting/Diarrhea Stated complaint: 11 wks preg vomiting, passed out Time Seen by Provider: 06/09/23 16:54 - History of Present Illness Initial comments: This is a 22-year-old female who presents to the emergency department for nausea and vomiting in . States that she is about 11 weeks . This has started to make her feel very weak and she is concerned that she may pass out. She has minor abdominal discomfort. Denies any vaginal bleeding. (Bisi Rodriguez) - Related Data Home Medications Medication Instructions Recorded Confirmed Citalopram Hydrobromide [CeleXA] 20 mg PO HS 04/23/20 04/25/20 QUEtiapine [SEROquel] 50 mg PO HS 04/23/20 04/25/20 Previous Rx's Medication Instructions Recorded Amoxicillin 500 mg PO TID #30 capsule 04/23/20 Metoclopramide [Reglan] 5 mg PO ACHS #12 tab 04/23/20 Allergies Allergy/AdvReac Type Severity Reaction Status Date / Time No Known Allergies Allergy Verified 06/09/23 16:30 Review of Systems ROS Other: All systems not noted in ROS Statement are negative. <Bisi Rodriguez - Last Filed: 06/09/23 16:54> ROS Other: All systems not noted in ROS Statement are negative. <Danni Huerta - Last Filed: 06/10/23 19:31> ROS Statement: Those systems with pertinent positive or pertinent negative responses have been documented in the HPI. Past Medical History Past Medical History: No Reported History Additional Past Medical History / Comment(s): DIGESTIVE PROBLEMS. History of Any Multi-Drug Resistant Organisms: None Reported Past Surgical History: No Surgical Hx Reported Additional Past Surgical History / Comment(s): FACIAL RECONSTRUCTION D/T DOG ATTACK. Past Anesthesia/Blood Transfusion Reactions: No Reported Reaction Past Psychological History: Bipolar, Depression Smoking Status: Current every day smoker Past Alcohol Use History: Occasional Past Drug Use History: Marijuana - Past Family History Mother Family Medical History: No Reported History Father Family Medical History: Unable to Obtain <Bisi Rodriguez - Last Filed: 06/09/23 16:54> General Exam Limitations: no limitations <Bisi Rodriguez - Last Filed: 06/09/23 16:54> - General Exam Comments Initial Comments: Visual Physical Exam Vital signs reviewed General: Well-appearing, nontoxic, no acute distress. Head: Normocephalic, atraumatic Eyes: PERRLA, EOMI ENT: Airway patent Chest: Nonlabored breathing Skin: No visual rash, normal skin tone Neuro: Alert and oriented 3 Musculoskeletal: No gross abnormalities (Bisi Rodriguez) Course Vital Signs 06/09/23 16:26 Temperature 98.2 F Pulse Rate 90 Respiratory 15 Rate Blood Pressure 96/48 O2 Sat by Pulse 99 Oximetry Medical Decision Making <Bisi Rodriguez - Last Filed: 06/09/23 16:54> - Lab Data Result diagrams: 06/09/23 18:44 06/09/23 18:44 <Danni Huerta - Last Filed: 06/10/23 19:31> - Medical Decision Making I performed the QuickNote portion of this chart. Signed Bisi Rdoriguez PA-C. (Bisi Rodriguez) Patient was given some IV fluids and Zofran. Patient decided that she wanted to leave A. (Danni Huerta) - Lab Data Lab Results 06/09/23 06/09/23 06/09/23 Range/Units 18:44 18:44 18:44 WBC 8.2 (3.8-10.6) k/uL RBC 4.38 (3.80-5.40) m/uL Hgb 13.4 (11.4-16.0) gm/dL Hct 39.9 (34.0-46.0) % MCV 91.3 (80.0-100.0) fL MCH 30.6 (25.0-35.0) pg MCHC 33.5 (31.0-37.0) g/dL RDW 13.0 (11.5-15.5) % Plt Count 192 (150-450) k/uL MPV 7.3 Neutrophils % 82 % Lymphocytes % 12 % Monocytes % 4 % Eosinophils % 0 % Basophils % 0 % Neutrophils # 6.7 (1.3-7.7) k/uL Lymphocytes # 1.0 (1.0-4.8) k/uL Monocytes # 0.3 (0-1.0) k/uL Eosinophils # 0.0 (0-0.7) k/uL Basophils # 0.0 (0-0.2) k/uL Sodium 135 L (137-145) mmol/L Potassium 3.4 L (3.5-5.1) mmol/L Chloride 103 (98-107) mmol/L Carbon Dioxide 18 L (22-30) mmol/L Anion Gap 14 mmol/L BUN 6 L (7-17) mg/dL Creatinine 0.50 L (0.52-1.04) mg/dL Est GFR (CKD-EPI)AfAm >90 (>60 ml/min/1.73 sqM) Est GFR (CKD-EPI)NonAf >90 (>60 ml/min/1.73 sqM) Glucose 71 L (74-99) mg/dL Calcium 9.3 (8.4-10.2) mg/dL Total Bilirubin 1.0 (0.2-1.3) mg/dL AST 23 (14-36) U/L ALT 16 (4-34) U/L Alkaline Phosphatase 67 (38-126) U/L Total Protein 7.5 (6.3-8.2) g/dL Albumin 4.4 (3.5-5.0) g/dL Amylase 92 (30-110) U/L Lipase 124 (23-300) U/L HCG, Quant 085344.0 mIU/mL Influenza Type A (PCR) Not Detected (Not Detectd) Influenza Type B (PCR) Not Detected (Not Detectd) RSV (PCR) Not Detected (Not Detectd) SARS-CoV-2 (PCR) Not Detected (Not Detectd) Disposition <Bisi Rodriguez - Last Filed: 06/09/23 16:54> Is patient prescribed a controlled substance at d/c from ED?: No <Danni Huerta - Last Filed: 06/10/23 19:31> Clinical Impression: Left against medical advice Disposition: LEFT AGAINST MEDICAL ADVICE Referrals: Rigo Olivas MD [Primary Care Provider] - 1-2 days
[2023-06-09 18:59] LABS: Basophils % (A) 0 %; Eosinophils % (A) 0 %; HCT 39.9 % (34.0-46.0); HGB 13.4 gm/dL (11.4-16.0); Lymphocytes % (A) 12 %; MCH 30.6 pg (25.0-35.0); MCHC 33.5 g/dL (31.0-37.0); MCV 91.3 fL (80.0-100.0); Mean Platelet Volume 7.3; Monocytes # (A) 0.3 k/uL (0-1.0); Monocytes % (A) 4 %; Neutrophils # (A) 6.7 k/uL (1.3-7.7); Neutrophils % (A) 82 %; Platelet Count 192 k/uL (150-450); RBC 4.38 m/uL (3.80-5.40); WBC 8.2 k/uL (3.8-10.6)
[2023-06-09] MEDS ORDERED: SODIUM CHLORIDE 0.9% 2,000 ML IV ONE (19:07)
[2023-06-09] MEDS ORDERED: METOCLOPRAMIDE 5 MG/ML 2 ML VIAL IVP STA (19:07)
[2023-06-09] MEDS ORDERED: PYRIDOXINE 100 MG/ML 1 ML VIAL IVP STA (19:07)
[2023-06-09 19:08] LABS: ALT 16 U/L (4-34); AST 23 U/L (14-36); African American GFR (CKD) >90 (>60 ml/min/1.73 sqM); Albumin 4.4 g/dL (3.5-5.0); Alkaline Phosphatase 67 U/L (38-126); Amylase 92 U/L (30-110); Anion Gap 14 mmol/L; Blood Urea Nitrogen 6 mg/dL (7-17); Calcium 9.3 mg/dL (8.4-10.2); Carbon Dioxide 18 mmol/L (22-30); Chloride 103 mmol/L (98-107); Glucose 71 mg/dL (74-99); Lipase 124 U/L (23-300); Non-African American GFR(CKD) >90 (>60 ml/min/1.73 sqM); Potassium 3.4 mmol/L (3.5-5.1); Sodium 135 mmol/L (137-145); Total Protein 7.5 g/dL (6.3-8.2)
--- NOTE | 2023-06-09 21:18 | US ---
EXAMINATION TYPE: Transabdominal DATE OF EXAM: 06/09/2023 7:37 PM COMPARISON: NONE CLINICAL INDICATION: Female, 22 years old with history of cramping; Hyperemesis. Cramping x 3 days, n o bleeding. EXAM PERFORMED: Transabdominal (TA) ultrasound gravid uterus EXAM MEASUREMENTS: GESTATIONAL AGE / DATING Physician Established: Not yet established Dates by LMP: (10 weeks/6 days) EDC: 12/30/23 Dates by First Scan: No previous this is first scan Dates by Current Scan for: (10 weeks/3 days) EDC: 01/02/24 MATERNAL ANATOMY Uterus: 10.9 x 8.3 x 6.3cm Right Ovary: 3.8 x 3.2 x 2.7cm Left Ovary: 3.6 x 3.2 x 2.4cm Post CDS / Adnexa: wnl Presence of free fluid: No Presence of corpus luteal cyst: Yes, in rt ov measuring 2.7 x 2.1 x 2.2cm Presence of subchorionic bleed: Yes, hypoechoic area seen adjacent to gest sac measuring 2.0 x 0.9 x 0.7cm. GESTATION / SURVEY CRL: 3.5cm (10 weeks/3 days) MSD: Not measured Yolk Sac (normal less than 6mm): 5.2mm Heart Rate: 172 bpm Rhythm: Normal IUP: Viable IUP Date of LMP: 03/25/23 Beta HcG (if available): Not available at this time IMPRESSION: 1. Single, live IUP measuring 10 weeks 3 days with CARLOTA 01/02/2024 by ultrasound. 2. Small subchorionic hematoma. Follow-up recommended.
== END 2023-06-09 20:06 | disposition left against medical advice (07) ==
LOC: EC 16:05
DX: O21.9 Vomiting of pregnancy, unspecified (principal); O99.331 Smoking (tobacco) complicating pregnancy, first trimester; F12.90 Cannabis use, unspecified, uncomplicated; F17.200 Nicotine dependence, unspecified, uncomplicated; Z86.59 Personal history of other mental and behavioral disorders; Z20.822 Contact with and (suspected) exposure to COVID-19; Z53.29 Procedure and treatment not carried out because of patient's decision for other reasons; Z3A.11 11 weeks gestation of pregnancy
CPT/HCPCS: 36415; 80053; 82150; 83690; 85025; 84702; 87636; 76801; 99284; 96374; J2765

== ENCOUNTER → 2023-11-18 | Outpatient (CLI) | payer OTHER ==
--- NOTE | 2023-11-19 11:13 | US ---
EXAMINATION TYPE: US OB >= 14 wk fetus DATE OF EXAM: 11/18/2023 COMPARISON: 06/09/2023 CLINICAL INDICATION: Female, 23 years old with history of Z33.1 STATE, INCIDENTAL; Growth an d lie TECHNIQUE: GESTATIONAL AGE / DATING Physician Established: (34 weeks/0 days) EDC: 12/30/2023 Dates by LMP: ( weeks/ days) EDC: Dates by First Scan: ( weeks/ days) EDC: Dates by Current Scan: (34 weeks/0 days) EDC: 12/30/2023 Beta HCG (if available): Not available at this time SURVEY IUP: Single PLACENTA: Anterior PREVIA: No Previa ALANNA: 12.8 cm Normal CERVICAL LENGTH (transabdominal: norm > 3.0cm): 3.0 cm BIOMETRY PRESENTATION: Vertex LIE: Longitudinal BPD: 8.35 cm 33 weeks / 5 days HC: 30.71 cm 34 weeks / 2 days AC: 29.91 cm 34 weeks / 0 days FL: 6.51 cm 33 weeks / 4 days ESTIMATED WEIGHT IN GRAMS: 2279 grams ESTIMATED WEIGHT IN LBS/OZ: 5 lbs. 0 oz. WEIGHT PERCENTAGE BASED ON ESTABLISHED DATES: 37% HC/AC: 1.03 Normal FL/AC: 22% Normal HEART RATE: 136 bpm RHYTHM: Normal IMPRESSION: 1. Single intrauterine gestation estimated at 34 weeks 0 days gestation based on current ultrasound m easurements. Cardiac activity measures 136 bpm. 2. Estimated weight 2279 g.
== END | disposition home or self-care (01) ==
LOC: RADUSWWP 14:04
PROVIDERS: ATTEND Obstetrics & Gynecology
DX: Z33.1 Pregnant state, incidental (principal); Z3A.34 34 weeks gestation of pregnancy
CPT/HCPCS: 76805